=== PATIENT | female | born 2005 | race Caucasian/White ===

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

== ENCOUNTER 2025-02-04 18:46 | Emergency (ER) | payer OTHER, SELFPAY ==
--- NOTE | 2025-02-04 18:47 | ED.URI ---
HPI - URI/Sore Throat General Chief Complaint: Upper Respiratory Infection Stated Complaint: sinus congestion/sore throat Time Seen by Provider: 02/04/25 18:46 Source: patient Mode of arrival: ambulatory Limitations: no limitations History of Present Illness HPI Narrative: Nicole is a 19-year-old female patient presenting to the clinic today with complaints of sore throat, nasal congestion, headache x1 days. She reports no known fever, chills, body aches. Denies any chest pain or shortness of breath. Related Data Allergies Allergy/AdvReac Type Severity Reaction Status Date / Time No Known Allergies Allergy Verified 02/04/25 18:47 Review of Systems Review of Systems: Pertinent positives per HPI. Patient denies any fever, chills, rash, headache, visual changes, dizziness, palpitations, nausea, vomiting, diarrhea, constipation, abdominal pain, or any urinary issues. [facility] Past Medical History Medical History History of anxiety History of depression Chronic headaches Social History Social History Smoking status: Never smoker Substance use: never Gender identity (if verbalized by the patient): Female Comments At the time of my signature, I reviewed and agree with the nursing past medical, surgical, social, and family history. There is no relevant family history pertinent to the patient complaint. Exam Narrative: General: Well-developed, well nourished, in no apparent distress Head: Normocephalic, atraumatic Eyes: Pupils equally round and reactive to light bilaterally, EOM intact, sclera and conjunctive clear, no discharge, lids normal Ears: TMs intact and clear, ear canals clear, no drainage, grossly hearing normal. Nose: Nares patent, clear nasal discharge, no inflammation, no sinus tenderness. Mouth: Oral pharynx red with bilateral tonsillar enlargement without lesions or masses, good dentition, MMM. Neck: Supple, trachea midline, no enlargement of anterior or posterior cervical nodes, no thyroid masses or goiter palpable. Cardio: Regular rate and rhythm, s1 and s2 normal, no murmur appreciated. Resp: Clear to auscultation bilaterally, no rhonchi, rales, wheezing or rubs Course Course Emergency Course: Portions of this record may have been created with voice recognition software. Level of Care: Express Care Visit Vital Signs Vital signs: Vital Signs Temperature 37.7 C H 02/04/25 18:59 Pulse Rate 93 02/04/25 18:59 Respiratory Rate 20 02/04/25 18:59 Blood Pressure 118/78 02/04/25 18:59 Pulse Oximetry 98 02/04/25 18:59 Oxygen Delivery Room Air 02/04/25 18:59 Temperature 37.7 C H 02/04/25 18:59 Pulse Rate 93 02/04/25 18:59 Respiratory Rate 20 02/04/25 18:59 Blood Pressure 118/78 02/04/25 18:59 Pulse Oximetry 98 02/04/25 18:59 Oxygen Delivery Room Air 02/04/25 18:59 Vital signs reviewed MDM - URI/Sore Throat MDM Narrative Medical decision making narrative: At the time of visit patient is resting comfortably on the exam table. Patient appears to be nontoxic. Labs: COVID, influenza, and strep test were all negative in the clinic today. We will send strep for culture. Plan: I suspect patient has URI/pharyngitis. Supportive measures were discussed with the patient and they voiced understanding discharge instructions and agrees to treatment plan. Return precautions reviewed Differential Diagnosis Differential diagnosis: Likely upper respiratory infection, otitis media, sinusitis, viral infection, bronchitis, influenza, pharyngitis and other (COVID) Lab Data Labs: Lab Results 02/04/25 Range/Units 18:55 POC Grp A Strep Screen Negative (Negative) Discharge Plan Discharge Clinical Impression: Upper respiratory infection Qualifiers: URI type: unspecified URI Qualified Code(s): J06.9 - Acute upper respiratory infection, unspecified Pharyngitis Qualifiers: Pharyngitis/tonsillitis etiology: unspecified etiology Qualified Code(s): J02.9 - Acute pharyngitis, unspecified Patient Disposition: Home Condition: Stable Instructions: Antibiotic Form, Pharyngitis (ED), Cold Symptoms (ED) Additional Instructions: Strep test was negative in the clinic today. We will send for culture if this comes back positive we will contact him place you on antibiotics at that time. COVID and influenza testing was negative No sign of bacterial infection in the clinic today and lung sounds are clear. May take DayQuil/NyQuil for cold/flu symptoms. Increase fluids and stay well hydrated Tylenol/motrin for pain/fever Flonase and OTC antihistamines as directed Vicks vapor rub to open sinuses Sinus rinses for congestion Cepacol spray, cough drops, throat lozenges, warm tea with honey/lemon, gargle salt water to soothe throat BRAT diet for diarrhea Clear liquids x 24 hours then advance as tolerated for nausea/vomiting Go to the ED if you develop a worsening in your condition- high fever not controlled by Tylenol or Motrin, dehydration, weakness, lethargy, shortness of breath, or chest pain. Follow up with your PCP in 3-5 days if symptoms persist. Patient Language: Amharic Follow-up/Referrals: UNKNOWN,DOCTOR [Non-Staff] - Stand Alone Forms: Work/School Release IP Time of Disposition: 19:11 Quality NIHSS Nursing Documentation ED NIHSS nursing documentation: reviewed/agree
[2025-02-04 18:59] VITALS: BP 118/78; PULSE 93; RESP 20; TEMP 37.7; O2SAT 98
[2025-02-04 19:07] LABS: EDSTREPNEGPOS1 Negative (Negative)
[2025-02-04 19:16] LABS: EDCOVIDSCREEN Negative (Negative); EDINFLUASCREEN Negative (Negative); EDINFLUBSCREEN Negative (Negative)
== END 2025-02-04 19:15 | disposition home or self-care (01) ==
PROVIDERS: Emergency Provider Nurse Practitioner Family
DX: J06.9 Acute upper respiratory infection, unspecified (principal); J02.9 Acute pharyngitis, unspecified; Z20.822 Contact with and (suspected) exposure to COVID-19
CPT/HCPCS: 87081; 87426; 87804; 87880; 99213; G0463

== ENCOUNTER 2025-02-24 13:09 | Outpatient (CLI) | payer OTHER, SELFPAY ==
--- OUTSIDE RECORDS SUMMARY | 2025-02-24 13:38 | XMS_ITS | Patient Health Record ---
Author Organization [facility] Address [address] [place] [address] Care Team Providers Care Production Shift Supervisor Name Role Phone Gamaliel Olga Primary Care Provider [phone] Allergies No Known Allergies Reason For Referral No Information Medications Medication SIG (Take, Route, Fr equency, Duration) Notes Start Date End Date Status Propranolol HCl 40 MG 1 tablet Orally th ree times daily as needed for anxiety; Duration: 30 days Active hydrOXYzine HCl 50 MG 1 tablet as needed Orally three times a day; Duration: 30 days Active LaMICtal 150 MG 1 tablet Orally Once a day; Duration: 30 days Active Zoloft 100 MG 1.5 tablet Orally at night; Duration: 30 days Active Social History Tobacco Use: Social History Observation Description Date Details (start date - stop date) Never Smoker NA - NA Sex Assigned At : Social History Observation Description Sex Assigned At Female PRAPARE Question Answer Notes Date Completed/Updated: 02/12/2025 What is your current housing situation? I have h ousing Are you worried about losing your housing? No What is the highest level of school that you have finished? 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 Check all that apply Food Has lack of transportation k ept you from medical appointments, meetings, work or from getting things needed for daily living? No How often do you see or talk to people that you care about and feel close to? (For example: talking to friends on the phone, visiting friends or family, going to restorationism or club meetings) 3 to 5 times a week How stressed are you? Stress is when someone feels tense, nervous, anxious, or can\t sleep at night because their mind is troubled Very much In the past year have you sp ent more than 2 nights in a row in a group home, group home, retirement center, or juvenile correctional facility? No Do you feel physically and e motionally safe where you currently live? Yes In the past year, have you b een afraid of your partner or ex-partner? No PRAPARE Score: 7 Tobacco Control (Standard) Question Answer Notes Tobacco use: Nonsmoker Additional Findings: Tobacco non-user Cu rrent nonsmoker,Nonsmoker for oriental orthodox reasons Problems Problem Type SNOMED Code ICD Code Onset Dates Problem Status W/U Status Risk Notes Problem Depression (746953027) Depression (F32.9) Active confirmed Problem Anxiety (53768109) Anxiety (F41.9) Active confirmed Problem Bipolar disorder current episode depressed (F31.30) Active confirmed Encounters Encounter Location Date Provider Diagnosis [address] [address] 03/14/2024 Olga Gamaliel Bipolar disorder current episode depressed F31.[address] [address] 04/01/2024 Olga Gamaliel Bipolar disorder current episode depressed F31.[address] [address] 05/02/2024 Olga Gamaliel Bipolar disorder current episode depressed F31.[address] [address] 07/15/2024 Olga Gamaliel Bipolar disorder current episode depressed F31.[address] [address] 12/05/2024 Olga Gamaliel Bipolar disorder current episode depressed F31.30 [address] [place] [address] 10/28/2024 Olga Gamaliel Bipolar disorder current episode depressed F31.[address] [place] [address] 02/14/2025 Olga Alston Assessments Encounter Date Diagnosis (ICD Code) Assessment Notes Treatment Notes Treatment Clinical Notes Section Notes 03/14/2024 Bipolar disorder current episode depressed (ICD-10 - F31.30) 04/01/2024 Bipolar disorder current episode depressed (ICD-10 - F31.30) 05/02/2024 Bipolar disorder current episode depressed (ICD-10 - F31.30) 07/15/2024 Bipolar disorder current episode depressed (ICD-10 - F31.30) 10/28/2024 Bipolar disorder current episode depressed (ICD-10 - F31.30) 12/05/2024 Bipolar disorder current episode depressed (ICD-10 - F31.30) 12/05/2024 Other Patient may self-administer their own medications or may self-administer their own oral medications per [facility] Protocol. Plan Of Treatment No Information Insurance Providers Payer Name Payer Address Payer Phone Subscriber Number Group Number Insured Name Patient Relationship to Insured Coverage Start Date Coverage End Date MEDICAID [address] [address] [id number] Nicole Rodriguez Self - patient is the insured 0 MEDICAID TELEHE[employer] [address] [address] [id number] Nicole Rodriguez Self - patient is the insured 9 Medical (General) History Surgical History Surgery Date(Month/Year) Hospitalization History Reason Date(Month/Year)
--- OUTSIDE RECORDS SUMMARY | 2025-02-24 13:38 | XMS_ITS | Clinical Summary ---
Author Organization [facility] Address [address] [place] [address] Care Team Providers Care Manager Storage Name Role Phone Soha Pompa MD Primary Care Provider [phone] Source Comments [facility],non-owned Affiliates and Associated Physician Practices is amultiple site organization consisting of ambulatory clinics and hospital sitesin [place], [place], [place]. This disclosure is being madepursuant to the Care Everywhere program and may not contain all information available regarding this patient. Last updated 18.[facility] Allergies Active Allergy Reactions Criticality Noted Date Comments Daucus [place] Anaphylaxis High 05/18/2022 [place] Anaphylaxis High 05/18/2022 Medications * Be aware that medications may not be up to date on this document. Alwaysverify current medications with the patient. 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
[2025-02-24 13:48] LABS: Basophils Percent Auto 0.4 % (0.2-1.2); Eosinophils Absolute Auto 0.2 K/mm3 (0-0.3); Eosinophils Percent Auto 1.6 % (0-4.4); Hematocrit 39.9 % (37.0-47.0); Hemoglobin 12.5 g/dL (12.0-15.0); Immature Granulocyte Absolute 0.03 K/mm3 (0.00-0.031); Immature Granulocyte Percent A 0.3 % (0-0.5); Lymphocytes Absolute Auto 2.16 K/mm3 (0.9-3.2); Lymphocytes Percent Auto 21.7 % (18.3-44.2); Mean Corpuscular HGB Conc 31.3 g/dl (32-36); Mean Corpuscular Hemoglobin 26.4 pg (26-34); Mean Corpuscular Volume 84.4 fl (80-100); Mean Platelet Volume 9.8 fl (7.4-10.4); Monocytes Absolute Auto 0.8 K/mm3 (0.1-0.6); Monocytes Percent Auto 7.6 % (2.6-8.5); Neutrophils Absolute Auto 6.8 K/mm3 (1.3-6.7); Neutrophils Percent Auto 68.4 % (45.5-73.1); Platelet Count Result 387 k/mm3 (150-375); Red Blood Count 4.73 M/mm3 (4.2-5.4); Red Cell Distribution Width 13.8 % (11.5-14.5)
[2025-02-24 14:24] LABS: Beta HCG Quantitative < 2.39 mIU/ML
[2025-02-24 14:46] LABS: Iron 68 ug/dL (37-170)
[2025-02-24 14:58] LABS: Percent Iron Saturation 18 % (20-50)
[2025-02-25 04:04] LABS: Progesterone. 0.6 ng/mL
[2025-02-25 18:53] LABS: FSH 6.1 mIU/mL; LH. 4.2 mIU/mL; Prolactin. 15.1 ng/mL
[2025-02-25 19:19] LABS: DHEA-Sulfate. 261 mcg/dL (44-286)
[2025-02-25 19:38] LABS: Sex Hormone Binding Globulin 25 nmol/L (17-124)
[2025-02-26 13:43] LABS: Insulin Level Total. 22.6 uIU/mL
== END 2025-02-24 13:10 | disposition home or self-care (01) ==
LOC: ANHLAB 13:13
PROVIDERS: Visit Provider Obstetrics & Gynecology
DX: N92.6 Irregular menstruation, unspecified (principal)
CPT/HCPCS: 36415; 82627; 82670; 83001; 83002; 83498; 83525; 83527; 83540; 83550; 84144; 84146; 84270; 84402; 84403; 84443; 84702; 85025

== ENCOUNTER 2025-06-12 15:16 | Outpatient (CLI) | payer OTHER, SELFPAY ==
[2025-06-12 16:15] LABS: Beta HCG Quantitative < 2.39 mIU/ML
== END 2025-06-12 15:17 | disposition home or self-care (01) ==
LOC: ANHLAB 15:17
PROVIDERS: Visit Provider Obstetrics & Gynecology
DX: N92.6 Irregular menstruation, unspecified (principal)
CPT/HCPCS: 36415; 84702